=== PATIENT | female | born 1985 ===

== ENCOUNTER 2019-04-06 11:13 | Emergency (ER) | payer OTHER, SELFPAY ==
--- NOTE | 2019-04-06 12:30 | RAD ---
XR Foot Rt 3 View STANDARD HISTORY: Foot pain no recent trauma. COMPARISON: None. FINDINGS: Joint spaces appear well preserved. No fracture or other findings. IMPRESSION: Unremarkable right foot.
--- NOTE | 2019-04-06 12:32 | RAD ---
XR Foot Lt 3 View STANDARD HISTORY: Foot pain COMPARISON: None. FINDINGS: There are no signs of fracture, dislocation or other bony findings. IMPRESSION: Unremarkable left foot.
== END 2019-04-06 12:50 | disposition home or self-care (01) ==
LOC: SCSER 11:13
DX: M79.671 Pain in right foot (principal); M79.672 Pain in left foot

== ENCOUNTER 2019-07-04 21:17 | Emergency (ER) | payer SELFPAY | END 2019-07-04 21:43 | disposition home or self-care (01) | LOC: SCSER 21:17 | DX: J06.9 Acute upper respiratory infection, unspecified (principal) | CPT/HCPCS: 99281 ==